=== PATIENT | male | born 1965 | race Caucasian/White ===

== ENCOUNTER 2017-05-15 19:26 | Emergency (ER) | payer BC ==
[2017-05-15] MEDS ORDERED: Sodium Chloride 0.9% 10 ML Syringe FLUSH PRN (19:51)
[2017-05-15] MEDS ORDERED: Acetaminophen 500 MG Tab PO ONE (19:51)
[2017-05-15] MEDS ORDERED: Sodium Chloride 0.9% 2.5 ML Syringe FLUSH PRN (19:51)
--- NOTE | 2017-05-15 19:54 | EDM.PDOC ---
ED HPI GENERAL MEDICAL PROBLEM - General Chief Complaint: Cardiovascular Problem Stated Complaint: PT HAS HIGH BLOOD PRESSURE Time Seen by Provider: 05/15/17 19:45 - History of Present Illness INITIAL COMMENTS - FREE TEXT/NARRATIVE: HISTORY AND PHYSICAL: History of present illness: The patient is a 52-year-old male who follows with Dr. Sofia at [facility] and has been monitored in the clinic for elevated blood pressures but he has not been started on medications. He brings a card which shows his blood pressure on March 12 as 148/[address] Sofia wanted to follow this number and follow-up with him in the clinic. The patient presents today because 2 days ago it was 164/104 and today he has taken his blood pressure twice and it has been 165/101 76/110. He has had a diffuse headache more on the right side and he is concerned about the elevated blood pressure with the headache. He has had no chest pain shortness of breath urinary issues abdominal pain vomiting or diarrhea and no dizziness or lightheadedness. He has no neck or back pain and no neurosensory changes in his extremities or weakness in his extremities. He has no visual changes. Patient said he has been watching the sodium in his diet and he has no social history contribute to this. He has no leg swelling or hand swelling and is here for evaluation of his blood pressure. He has not talked to his provider in the clinic for these elevated numbers over the last 2 days. Review of systems: As per history of present illness and below otherwise all systems reviewed and negative. Past medical history: As per history of present illness and as reviewed below otherwise noncontributory. Surgical history: As per history of present illness and as reviewed below otherwise noncontributory. Social history: No reported history of drug or alcohol abuse. Family history: As per history of present illness and as reviewed below otherwise noncontributory. Physical exam: Gen.: Well-developed well-nourished man who is nontoxic and speaking clearly in the ED. Vital signs are noted by me HEENT: Atraumatic, normocephalic, pupils reactive, negative for conjunctival pallor or scleral icterus, mucous membranes moist, throat clear, neck supple, nontender, trachea midline. Lungs: Clear to auscultation, breath sounds equal bilaterally, chest nontender. Heart: S1S2, regular, negative for clicks, rubs, or JVD. Abdomen: Soft, nondistended, nontender. Negative for masses or hepatosplenomegaly. NABS Pelvis: Stable nontender. Genitourinary: Deferred. Rectal: Deferred. Extremities: Atraumatic, negative for cords or calf pain. Neurovascular unremarkable. No pedal edema or leg asymmetry Neuro: Awake, alert, oriented. Cranial nerves II through XII unremarkable. Cerebellum unremarkable. Motor and sensory unremarkable throughout. Exam nonfocal. Diagnostics: EKG CBC CMP troponin UA CT scan of the head Therapeutics: IV O2 monitor Tylenol HCTZ Patient is feeling improved with respect to his headache after the Tylenol. He does wet the bedside are aware of all testing results and have also briefly discussed this case with our hospitalist. We will recommend starting HCTZ 25 mg daily as the patient does not have a clinic appointment until Saturday. I did advise him to again watch the sodium in his diet and to call the clinic tomorrow and see if he can move his appointment up. We've also discussed journaling of his blood pressure twice a day to help assist the provider and management of this. I've advised him on reasons to return to the ED. Impression: Hypertension Stable Definitive disposition and diagnosis as appropriate pending reevaluation and review of above. head Pain Score (Numeric/FACES): 2 - Related Data Allergies Allergy/AdvReac Type Severity Reaction Status Date / Time No Known Allergies Allergy Verified 05/15/17 19:48 Home Meds: Home Meds Unrecalled Med 05/15/17 [History] Past Medical History - Past Health History Medical/Surgical History: Denies Medical/Surgical History Cardiovascular History: Reports: High Cholesterol, Hypertension - Past Surgical History Musculoskeletal Surgical History: Reports: Other (See Below) Other Musculoskeletal Surgeries/Procedures:: knee sx Social & Family History - Family History Family Medical History: Noncontributory - Tobacco Use Smoking Status *Q: Never Smoker - Recreational Drug Use Recreational Drug Use: No ED ROS GENERAL - Review of Systems Review Of Systems: ROS reveals no pertinent complaints other than HPI. ED EXAM, GENERAL - Physical Exam Exam: See Below (See dictation) Course - Vital Signs Last Recorded V/S: Last Vital Signs Temp 36.3 C 05/15/17 19:26 Pulse 91 05/15/17 19:26 Resp 18 05/15/17 19:26 BP 187/107 H 05/15/17 19:26 Pulse Ox 96 05/15/17 19:51 - Orders/Labs/Meds Orders: Active Orders 24 hr Category Date Time Status Cardiac Monitoring [RC] . DIRECTED Care 05/15/17 19:51 Active EKG Documentation Completion [RC] STAT Care 05/15/17 19:51 Active Oxygen Therapy, ED [RC] ASDIRECTED Care 05/15/17 19:51 Active Pulse Oximetry [RC] ASDIRECTED Care 05/15/17 19:51 Active Head wo Cont [CT] Stat Exams 05/15/17 19:51 Taken Sodium Chloride 0.9% [Saline Flush] Med 05/15/17 19:51 Active 10 ml FLUSH ASDIRECTED PRN Sodium Chloride 0.9% [Saline Flush] Med 05/15/17 19:51 Active 2.5 ml FLUSH ASDIRECTED PRN Saline Lock Insert [OM.PC] Stat Oth 05/15/17 19:51 Ordered Medication Orders Sodium Chloride (Saline Flush) 10 ml FLUSH ASDIRECTED PRN PRN Reason: Keep Vein Open Sodium Chloride (Saline Flush) 2.5 ml FLUSH ASDIRECTED PRN PRN Reason: Keep Vein Open Labs: Laboratory Tests 05/15/17 05/15/17 05/15/17 Range/Units 20:09 20:20 20:20 WBC 5.97 (4.0-11.0) K/uL RBC 4.40 L (4.50-5.90) M/uL Hgb 14.3 (13.0-17.0) g/dL Hct 41.2 (38.0-50.0) % MCV 93.6 (80.0-98.0) fL MCH 32.5 H (27.0-32.0) pg MCHC 34.7 (31.0-37.0) g/dL RDW Std Deviation 48.3 (28.0-62.0) fl RDW Coeff of [place] 14 (11.0-15.0) % Plt Count 226 (150-400) K/uL MPV 9.80 (7.40-12.00) fL Neut % (Auto) 56.6 (48.0-80.0) % Lymph % (Auto) 30.5 (16.0-40.0) % [place] % (Auto) 9.4 (0.0-15.0) % Eos % (Auto) 2.8 (0.0-7.0) % Baso % (Auto) 0.7 (0.0-1.5) % Neut # (Auto) 3.4 (1.4-5.7) K/uL Lymph # (Auto) 1.8 (0.6-2.4) K/uL [place] # (Auto) 0.6 (0.0-0.8) K/uL Eos # (Auto) 0.2 (0.0-0.7) K/uL Baso # (Auto) 0.0 (0.0-0.1) K/uL Nucleated RBC % 0.0 /100WBC Nucleated RBCs # 0 K/uL Sodium 140 (136-146) mmol/L Potassium 3.9 (3.5-5.1) mmol/L Chloride 105 (98-110) mmol/L Carbon Dioxide 24 (21-31) mmol/L BUN 18 (6.0-23.0) mg/dL Creatinine 1.1 (0.6-1.5) mg/dL Est Cr Clr Drug Dosing TNP Estimated GFR (MDRD) > 60.0 ml/min Glucose 157 H (60-110) mg/dL Calcium 9.5 (8.8-10.8) mg/dL Total Bilirubin 0.4 (0.1-1.5) mg/dL AST 34 (5-40) IU/L ALT 55 H (8-54) IU/L Alkaline Phosphatase 39 L (40-150) Troponin I < 0.10 (0.0-0.29) NG/ML Total Protein 6.6 (6.0-8.0) g/dL Albumin 4.3 (3.5-5.0) g/dL Globulin 2.3 (2.0-3.5) g/dL Albumin/Globulin Ratio 1.9 (1.3-2.8) Urine Color YELLOW Urine Appearance CLEAR Urine pH 6.0 (5.0-8.0) Ur Specific [place] 1.015 (1.001-1.035) Urine Protein NEGATIVE (NEGATIVE) mg/dL Urine Glucose (UA) NEGATIVE (NEGATIVE) mg/dL Urine Ketones NEGATIVE (NEGATIVE) mg/dL Urine Occult Blood TRACE-LYSED (NEGATIVE) Urine Nitrite NEGATIVE (NEGATIVE) Urine Bilirubin NEGATIVE (NEGATIVE) Urine Urobilinogen 0.2 (<2.0) EU/dL Ur Leukocyte Esterase NEGATIVE (NEGATIVE) Urine RBC 0-1 (0-2/HPF) Urine WBC 0-1 (0-5/HPF) Ur Epithelial Cells RARE (NONE-FEW) Urine Bacteria RARE (NEGATIVE) Meds: Medications Generic Name Dose Route Start Last Admin Trade Name Freq PRN Reason Stop Dose Admin Sodium Chloride 10 ml 05/15/17 19:51 Saline Flush FLUSH ASDIRECTED PRN Keep Vein Open Sodium Chloride 2.5 ml 05/15/17 19:51 Saline Flush FLUSH ASDIRECTED PRN Keep Vein Open Discontinued Medications Generic Name Dose Route Start Last Admin Trade Name Freq PRN Reason Stop Dose Admin Acetaminophen 1,000 mg 05/15/17 19:51 05/15/17 20:01 Tylenol Extra Strength PO 05/15/17 19:52 1,000 mg ONETIME ONE Administration Departure - Departure Time of Disposition: 21:31 Disposition: Home, Self-Care 01 Condition: Good Clinical Impression: Hypertension Qualifiers: Hypertension type: unspecified secondary hypertension Qualified Code(s): I15.9 - Secondary hypertension, unspecified; I15 - Secondary hypertension Referrals: PCP,None [Primary Care Provider] - Forms: ED Department Discharge Additional Instructions: The following information is given to patients seen in the emergency department who are being discharged to home. This information is to outline your options for follow-up care. We provide all patients seen in our emergency department with a follow-up referral. The need for follow-up, as well as the timing and circumstances, are variable depending upon the specifics of your emergency department visit. If you don't have a primary care physician on staff, we will provide you with a referral. We always advise you to contact your personal physician following an emergency department visit to inform them of the circumstance of the visit and for follow-up with them and/or the need for any referrals to a consulting specialist. The emergency department will also refer you to a specialist when appropriate. This referral assures that you have the opportunity for followup care with a specialist. All of these measure are taken in an effort to provide you with optimal care, which includes your followup. Under all circumstances we always encourage you to contact your private physician who remains a resource for coordinating your care. When calling for followup care, please make the office aware that this follow-up is from your recent emergency room visit. If for any reason you are refused follow-up, please contact the [facility] emergency department at and ask to speak to the emergency department charge nurse. [facility] [address] [facility] [address] [place] [address] [facility] Primary care- Internal Medicine and Family [facility] [address] [place] [address] [phone] Please keep your appointment in the clinic on Saturday and try to call tomorrow to see if you could move it up sooner. You may also call our clinic tomorrow to be seen in the clinic sooner if there is an available appointment. Please fill the prescription you have been given today and start taking this medication tomorrow. Please watch her salt intake and foods and continue to journal your blood pressures twice a day as we discussed. Return to ER as needed and as discussed - My Orders Last 24 Hours: My Active Orders 05/15/17 19:51 Cardiac Monitoring [RC] . DIRECTED EKG Documentation Completion [RC] STAT Oxygen Therapy, ED [RC] ASDIRECTED Pulse Oximetry [RC] ASDIRECTED Head wo Cont [CT] Stat Sodium Chloride 0.9% [Saline Flush] 10 ml FLUSH ASDIRECTED PRN Sodium Chloride 0.9% [Saline Flush] 2.5 ml FLUSH ASDIRECTED PRN Saline Lock Insert [OM.PC] Stat - Assessment/Plan Last 24 Hours: My Active Orders 05/15/17 19:51 Cardiac Monitoring [RC] . DIRECTED EKG Documentation Completion [RC] STAT Oxygen Therapy, ED [RC] ASDIRECTED Pulse Oximetry [RC] ASDIRECTED Head wo Cont [CT] Stat Sodium Chloride 0.9% [Saline Flush] 10 ml FLUSH ASDIRECTED PRN Sodium Chloride 0.9% [Saline Flush] 2.5 ml FLUSH ASDIRECTED PRN Saline Lock Insert [OM.PC] Stat
[2017-05-15 20:57] LABS: CHLORIDE,CL 105 mmol/L (98-110); SODIUM,NA 140 mmol/L (136-146)
[2017-05-15] MEDS ORDERED: Hydrochlorothiazide 25 MG Tab PO ONE (21:33)
--- NOTE | 2017-05-16 11:09 | CT ---
EXAM DATE: 05/15/17 PATIENT'S AGE: 52 Patient: ZENIA DOYLE Facility: [place], [place] Site . Site : [id number] Study: CT Head wo cont [id number] 8:48:24 PM Ordering Physician: Althea Bobby Final Report: INDICATION: HIGH BLOOD PRESSURE WITH HEADACHE CT HEAD WITHOUT CONTRAST TECHNIQUE: Multiple axial CT images were performed through the head without intravenous contrast administration. COMPARISON: No previous studies are currently available for comparison. FINDINGS: No acute intracranial hemorrhage is identified. No extra-axial collections are evident and there is no mass effect or midline shift. Ventricles are normal in size and configuration. Brain parenchyma appears normal with unremarkable lozoya-white differentiation. Osseous structures are within normal limits and no fractures are seen. Included portions of the paranasal sinuses and mastoid air cells are normally aerated. IMPRESSION: Normal non-contrast head CT. LUDWIN ROBLEDO MD [employer] Dictated by: Jaiden Robledo MD @ 05/15/2017 21:07:30 (Electronic Signature) Report Signed by Proxy. [facility]
== END 2017-05-15 21:39 | disposition home or self-care (01) ==
LOC: MW.ED 19:26
DX: I15.9 Secondary hypertension, unspecified (principal); E78.00 Pure hypercholesterolemia, unspecified
CPT/HCPCS: 36415; 70450; 80053; 81001; 84484; 85025; 93005; 99284; A9270